=== PATIENT | male | born 1985 | race Caucasian/White ===

== ENCOUNTER 2018-01-16 09:15 | Emergency (ER) | payer SELFPAY ==
[~2018-01-16] VITALS: Ht 172.7 cm; Wt 70.4 kg
[2018-01-16 09:23] VITALS: BP 142/91; PULSE 67; RESP 18; TEMP 98.2; O2SAT 100
[2018-01-16 09:29] VITALS: BP 142/91; PULSE 76; RESP 18; TEMP 98.2; O2SAT 99
[2018-01-16] MEDS ORDERED: LEVE250 PO (09:34)
--- NOTE | 2018-01-16 09:37 | PD ---
HPI Chief Complaint: Psychiatric Symptoms Time Seen by Provider: 09:27 Travel History International Travel<30 days: No Contact w/Intl Traveler<30days: No Traveled to known affect area: No History of Present Illness HPI patient voiced that he did drugs in an attempt to kill himself through an overdose.... Patient states that he was using both cocaine and heroin when he developed this chest pain.. However he developed chest pain over his left chest , 45 minutes prior to arrival, described as a tightness...... patient denies any alleviating or aggravating factors. Patient denies any associated factors such as fever, headache, neck pain, back pain, flank pain, abdominal pain, nausea vomiting diarrhea cough runny nose or sore throat. Past medical history significant for seizures, ulcer, alcohol use, cocaine use, heroin use. Only surgeries for right hand surgery. And apparently the patient has multiple sclerosis according to him. [facility] Social History Tobacco Use: No Allergies-Medications (Allergen,Severity, Reaction): Coded Allergies: prochlorperazine (Verified Allergy, Severe, Anaphylaxis, 01/16/18) HIVES Reported Meds & Prescriptions Reported Meds & Active Scripts Active Reported Keppra (Levetiracetam) 250 Mg Tab 250 Mg PO BID Review of Systems General / Constitutional: No: Fever Eyes: No: Visual changes HENT: No: Headaches Cardiovascular: Positive: Chest Pain or Discomfort Respiratory: No: Shortness of Breath Gastrointestinal: No: Abdominal Pain Genitourinary: No: Dysuria Musculoskeletal: No: Pain Skin: No Rash Neurologic: No: Weakness Psychiatric: Positive: Suicidal Ideations Endocrine: No: Polydipsia Hematologic/Lymphatic: No: Easy Bruising Physical Exam Narrative GENERAL: SKIN: Warm and dry. HEAD: Atraumatic. Normocephalic. EYES: Pupils equal and round. No scleral icterus. No injection or drainage. ENT: No nasal bleeding or discharge. Mucous membranes pink and moist. NECK: Trachea midline. No JVD. CARDIOVASCULAR: Regular rate and rhythm. RESPIRATORY: No accessory muscle use. Clear to auscultation. Breath sounds equal bilaterally. GASTROINTESTINAL: Abdomen soft, non-tender, nondistended. MUSCULOSKELETAL: Extremities without clubbing, cyanosis, or edema. No obvious deformities. NEUROLOGICAL: Awake and alert. No obvious cranial nerve deficits. Motor grossly within normal limits. Five out of 5 muscle strength in the arms and legs. Normal speech. PSYCHIATRIC: Appropriate mood and affect; insight and judgment normal. Data Data Last Documented VS Vital Signs Date Time Temp Pulse Resp B/P (MAP) Pulse Ox O2 Delivery O2 Flow Rate FiO2 01/16/18 09:29 98.2 76 18 142/91 (108) 99 Room Air Orders Orders Complete Blood Count With Diff (01/16/18:27) Comprehensive Metabolic Panel (01/16/18:) Urinalysis - C+S If Indicated (01/16/18:) Electrocardiogram (01/16/18:) Ecg Monitoring (01/16/18:) Psych Screen (01/16/18:) Drug Screen, Random Urine (01/16/18:) Alcohol (Ethanol) (01/16/18:27) Salicylates (Aspirin) (01/16/18:) Tylenol (Acetaminophen) (01/16/18:) Labs Laboratory Tests Test 01/16/18 09:44 White Blood Count 6.7 TH/MM3 Red Blood Count 4.66 MIL/MM3 Hemoglobin 13.7 GM/DL Hematocrit 40.3 % Mean Corpuscular Volume 86.5 FL Mean Corpuscular Hemoglobin 29.3 PG Mean Corpuscular Hemoglobin Concent 33.9 % Red Cell Distribution Width 12.4 % Platelet Count 232 TH/MM3 Mean Platelet Volume 9.3 FL Neutrophils (%) (Auto) 53.1 % Lymphocytes (%) (Auto) 33.2 % Monocytes (%) (Auto) 11.6 % Eosinophils (%) (Auto) 1.8 % Basophils (%) (Auto) 0.3 % Neutrophils # (Auto) 3.6 TH/MM3 Lymphocytes # (Auto) 2.2 TH/MM3 Monocytes # (Auto) 0.8 TH/MM3 Eosinophils # (Auto) 0.1 TH/MM3 Basophils # (Auto) 0.0 TH/MM3 CBC Comment DIFF FINAL Differential Comment Blood Urea Nitrogen 15 MG/DL Creatinine 0.94 MG/DL Random Glucose 99 MG/DL Total Protein 7.2 GM/DL Albumin 3.9 GM/DL Calcium Level 9.0 MG/DL Alkaline Phosphatase 63 U/L Aspartate Amino Transf (AST/SGOT) 33 U/L Alanine Aminotransferase (ALT/SGPT) 31 U/L Total Bilirubin 1.1 MG/DL Sodium Level 141 MEQ/L Potassium Level 3.6 MEQ/L Chloride Level 104 MEQ/L Carbon Dioxide Level 30.0 MEQ/L Anion Gap 7 MEQ/L Estimat Glomerular Filtration Rate 92 ML/MIN Salicylates Level LESS THAN 1.7 MG/DL Acetaminophen Level LESS THAN 2.0 MCG/ML Ethyl Alcohol Level LESS THAN 3 MG/DL MDM Medical Decision Making Medical Screen Exam Complete: Yes Emergency Medical Condition: Yes Medical Record Reviewed: Yes Interpretation(s) EKG shows a normal sinus rhythm, 71 bpm, normal intervals, no STEMI pattern noted. Differential Diagnosis Cocaine chest pain versus NV versus pneumothorax versus pneumonia Narrative Course Patient self admitted to using cocaine and heroin, so although now tox screen is present, I do not believe it is necessary for screening purposes. CBC shows no leukocytosis, no anemia, normal platelet count and no left shift Tylenol salicylates and alcohol are not present Electrolytes are all within normal limits, normal kidney/liver functions. Due to the patient's making statements about suicide, the patient was Mcnulty acted here and will need to have psychiatric evaluation, presently the patient is medically cleared and ready for such evaluation. Diagnosis Primary Impression: Medical clearance for psychiatric admission Ricco Valerio MD Jan 16, 2018 09:37
[2018-01-16 09:56] LABS: AUTOMATED NEUTROPHIL # 3.6 TH/MM3 (1.8-7.7); BASOPHIL % 0.3 % (0.0-2.0); EOSINOPHIL # 0.1 TH/MM3 (0-0.4); EOSINOPHIL % 1.8 % (0.0-4.0); HEMATOCRIT 40.3 % (39.0-51.0); HEMOGLOBIN 13.7 GM/DL (13.0-17.0); LYMPH % 33.2 % (9.0-44.0); LYMPHOCYTE # 2.2 TH/MM3 (1.0-4.8); MEAN CELL VOLUME 86.5 FL (80.0-100.0); MEAN CORPUSCULAR HEMOGLOBIN 29.3 PG (27.0-34.0); MEAN CORPUSCULAR HGB CONC 33.9 % (32.0-36.0); MEAN PLATELET VOLUME 9.3 FL (7.0-11.0); MONO % 11.6 % (0.0-8.0); MONOCYTE # 0.8 TH/MM3 (0-0.9); NEUT % 53.1 % (16.0-70.0); PLATELET COUNT 232 TH/MM3 (150-450); RED BLOOD COUNT 4.66 MIL/MM3 (4.50-5.90); RED CELL DISTRIBUTION WIDTH 12.4 % (11.6-17.2); WHITE BLOOD COUNT 6.7 TH/MM3 (4.0-11.0)
[2018-01-16 10:36] LABS: ALBUMIN 3.9 GM/DL (3.4-5.0); AST (GOT) 33 U/L (15-37); BLOOD UREA NITROGEN 15 MG/DL (7-18); CHLORIDE 104 MEQ/L (98-107); CREATININE 0.94 MG/DL (0.60-1.30); GLOMERULAR FILTRATION RATE 92 ML/MIN (>89); GLUCOSE,RANDOM 99 MG/DL (74-106); SODIUM (NA) 141 MEQ/L (136-145)
[2018-01-16 10:41] LABS: ACETAMINOPHEN LESS THAN 2.0 MCG/ML (10.0-30.0); ALKALINE PHOSPHATASE 63 U/L (45-117); ALT (GPT) 31 U/L (12-78); TOTAL BILIRUBIN ADULT 1.1 MG/DL (0.2-1.0); TOTAL PROTEIN 7.2 GM/DL (6.4-8.2)
[2018-01-16 13:30] VITALS: BP 121/81; PULSE 71; RESP 18; O2SAT 99
[2018-01-16 14:13] LABS: AMORPHOUS SEDIMENT, URINE OCC; BILIRUBIN, URINE NEG (NEG); BLOOD, URINE NEG (NEG); GLUCOSE,URINE NEG (NEG); KETONE, URINE 40 mg/dL (NEG); MUCUS URINE FEW /lpf (OCC); NITRITE,URINE NEG (NEG); PH, URINE 6.5 (5.0-8.5); SQUAMOUS EPITHELIAL CELL URINE <1 /hpf (0-5); URINE COLOR YELLOW (YELLW/STRAW); URINE LEUKOCYTE ESTERASE NEG (NEG)
[2018-01-16 15:33] VITALS: BP 136/89; PULSE 80; RESP 18; O2SAT 99
[2018-01-16 19:45] VITALS: BP 135/65; PULSE 76; RESP 16; O2SAT 98
[2018-01-16 22:06] VITALS: BP 138/86; PULSE 76; RESP 18; TEMP 98.5; O2SAT 97
[2018-01-16] MEDS ORDERED: DULO20 PO (22:30)
[2018-01-17 02:14] VITALS: BP 127/60; PULSE 59; RESP 18; TEMP 98.1; O2SAT 98
[2018-01-17 06:34] VITALS: BP 123/73; PULSE 67; RESP 18; TEMP 98.4; O2SAT 99
--- NOTE | 2018-01-17 09:12 | EKG ---
Date Performed: 01/16/2018 Time Performed: 09:29:56 PTAGE: 32 years EKG: Sinus rhythm NORMAL ECG NO PREVIOUS TRACING DOCTOR: Joey Nam Interpretating Date/Time 01/17/2018 09:11:55
--- NOTE | 2018-01-17 11:32 | PD ---
History of Present Illness Chief Complaint: Adjustment disorder Time Seen by Provider: 11:00 Travel History International Travel<30 Days: No Contact w/Intl Traveler<30days: No Known affected area: No Legal Status Legal Status: Mcnulty Act Mcnulty Act Signed By: DR KU History of Present Illness: This is a 32-year-old, single, male who presented to the emergency department by [facility] for a self-reported attempt to overdose on cocaine and heroin. Patient is unknown to this facility. Reviewed electronic medical record, labs, discuss case with staff patient's toxicology is positive for cocaine and cannabinoids. Negative for opiates. Per staff, patient was on vacation in the [facility] area, visiting from [place]. While here he was arrested for domestic assault against his girlfriend/fiance. She reportedly took their car and return to [place] without him. Patient was evaluated in his room and J pod. He is awake, alert, and oriented 4. He was found sleeping but awoke easily to verbal stimuli. Patient's speech is clear, organized, and logical. There are no indications of internal stimulation and I can elicit no delusional material. Patient's mood is sad and his affect is sad. He reports being "really anxious and depressed". However there are no outward signs of anxiety and his vital signs have been within normal limits. He reports previous admissions to psychiatric facilities for depression and states the last one was in [place] approximately 5 years ago. He also reports having been admitted to detox in October and the and the [place] area. He admits that at this time he is homeless due to being abandoned by his fiance. He still maintains that he feels suicidal, denies feeling homicidal, denies visual or auditory hallucinations. PFSH Past Medical History Medical other: Yes (MULTIPLE SCLEROSIS ) Seizures: Yes Ulcer: Yes Tetanus Vaccination: < 5 Years Psychiatric History Psychiatric History Reports psychiatric inpatient admission in [place] approximately 5 years ago. Reports inpatient detox in [place] in October. Hx Psychiatric Treatment: REPORTS HISTORY OF DEPRESSION AND ADHD. LAST TOOK [facility] 1 YEAR AGO History of Inpatient Treatment: Yes Guns or firearms in home: No Social History Cocaine and cannabinoid use. Reports opiates however tox screen negative for them. Hx Alcohol Use: Yes Hx Tobacco Use: No Hx Substance Use: Yes (6 YR HISTORY OF OPIATE ABUSE, OCCASIOANL COCAINE) Substance Use Type: Heroin, Cocaine Hx of Substance Use Treatment: Yes Allergies-Medications (Allergen,Severity, Reaction): Coded Allergies: prochlorperazine (Verified Allergy, Severe, Anaphylaxis, 01/16/18) HIVES Reported Meds & Prescriptions Reported Meds & Active Scripts Active Reported Cymbalta DR (Duloxetine HCl) 20 Mg Capdr 20 Mg PO DAILY Keppra (Levetiracetam) 250 Mg Tab 250 Mg PO BID Mental Status Examination Appearance: Disheveled Consciousness: Alert Orientation: x4 Motor Activity: Other (Sitting on the bed) Language: Adequate Fund of Knowledge: Adequate Attention and Concentration: Adequate Memory: Unremarkable Mood: Appropriate Affect: Appropriate Thought Process & Associations: Intact Thought Content: Appropriate Hallucination Type: None Delusion Type: None Suicidal Ideation: Yes Suicidal Plan: No Suicidal Intention: No Homicidal Ideation: No Homicidal Plan: No Homicidal Intention: No Insight: Adequate Judgment: Adequate MDM Medical Decision Making Medical Record Reviewed: Yes Assessment/Plan This is a 32-year-old single, male who is brought in by [facility] for self- reported attempted overdose by cocaine and heroin. And patient was Mcnulty acted by Dr. Ku, emergency room physician, after making suicidal statements. Staff advises that patient was in the [facility] area on vacation with his girlfriend/fianc when he was arrested for domestic assault. Patient's fianc then took the car and returned home leaving the patient in the area. Upon evaluation he is alert and oriented 4. His speech is clear, logical, and organized. He reports feeling "really anxious and depressed". Requests "something for my anxiety". His vital signs have been within normal limits and patient was found resting quietly in his bed just prior to his evaluation. He admits to being homeless at this time and states that he has "stuck down here". At this point patient will remain on the SMA list. However, I will present him to the on-call psychiatrist for possible further evaluation to rule out malingering. Orders Orders Diet Regular Basic (01/16/18 Lunch) Hydroxyzine Pamoate (Vistaril) (01/16/18 15:30) Diet Regular Basic (01/17/18 Breakfast) Diet Regular Basic (01/17/18 Lunch) Results Vital Signs Date Time Temp Pulse Resp B/P (MAP) Pulse Ox O2 Delivery O2 Flow Rate FiO2 01/17/18 06:34 98.4 67 18 123/73 (90) 99 Room Air 01/17/18 02:14 98.1 59 18 127/60 (82) 98 Room Air 01/16/18 22:06 98.5 76 18 138/86 (103) 97 Room Air 01/16/18 19:45 76 16 135/65 (88) 98 Room Air 01/16/18 15:33 80 18 136/89 (105) 99 Room Air 01/16/18 13:30 71 18 121/81 (94) 99 Room Air Laboratory Tests Test 01/16/18 13:49 Urine Color YELLOW Urine Turbidity CLEAR Urine pH 6.5 Urine Specific [place] 1.020 Urine Protein NEG Urine Glucose (UA) NEG Urine Ketones 40 Urine Occult Blood NEG Urine Nitrite NEG Urine Bilirubin NEG Urine Urobilinogen 2.0 Urine Leukocyte Esterase NEG Urine RBC LESS THAN 1 Urine WBC 1 Urine Squamous Epithelial Cells <1 Urine Amorphous Sediment OCC Urine Mucus FEW Microscopic Urinalysis Comment CULT NOT INDICATED Urine Opiates Screen NEG Urine Barbiturates Screen NEG Urine Amphetamines Screen NEG Urine Benzodiazepines Screen NEG Urine Cocaine Screen POS Urine Cannabinoids Screen POS Diagnosis Primary Impression: Adjustment disorder Lashay Chong Jan 17, 2018 11:32
[2018-01-17] MEDS ORDERED: HYDR50TA94 PO (12:35)
[2018-01-17] MEDS ORDERED: hydrOXYzine HCL 50 MG TAB PO ONE (13:00)
[2018-01-17 13:32] VITALS: BP 147/87; PULSE 80; RESP 18; O2SAT 100
--- NOTE | 2018-01-17 18:06 | PD.PSY.CON ---
Provisional Diagnosis Admission Date [place] I. Unspecified depressive disorder, polysubstance use disorder History of Present Illness Service Psychiatry Consult Requested By ED Reason for Consult Pricila emmanuel Primary Care Physician No Primary Care Physician HPI Patient is a 32-year-old man, single, from [place], with a past psychiatric history of self-reported depressive disorder, polysubstance use disorder (alcohol, cocaine, heroine), with a past medical history of multiple sclerosis as per patient, who was brought under Mcnulty act after he had called 911 stating that he had attempted to overdose on cocaine and heroin. Documentation reviewed and case discussed with [facility] who noted: This is a 32-year-old, single, male who presented to the emergency department by [facility] for a self-reported attempt to overdose on cocaine and heroin. Patient is unknown to this facility. Reviewed electronic medical record, labs, discuss case with staff patient's toxicology is positive for cocaine and cannabinoids. Negative for opiates. Per staff, patient was on vacation in the [facility] area, visiting from [place]. While here he was arrested for domestic assault against his girlfriend/fiance. She reportedly took their car and return to [place] without him. Patient was evaluated in his room and J pod. He is awake, alert, and oriented 4. He was found sleeping but awoke easily to verbal stimuli. Patient's speech is clear, organized, and logical. There are no indications of internal stimulation and I can elicit no delusional material. Patient's mood is sad and his affect is sad. He reports being "really anxious and depressed". However there are no outward signs of anxiety and his vital signs have been within normal limits. He reports previous admissions to psychiatric facilities for depression and states the last one was in [place] approximately 5 years ago. He also reports having been admitted to detox in October and the and the [place] area. He admits that at this time he is homeless due to being abandoned by his fiance. He still maintains that he feels suicidal, denies feeling homicidal, denies visual or auditory hallucinations. Patient was found lying hospital bed and noted to be, cooperative interview with commercial underwriter. Patient states that he had a fight with his fiance who had left back to [place] and he was stranded here and [facility]. Patient reports feeling tired of living, "tired of all the drugs". Patient states that since his girlfriend had left him he had been on the streets since yesterday reported feeling depressed for the past month with having suicide ideations "where she left me". Patient continues to report feeling depressed along with continue suicide ideations at this time, we will reported decreased sleep, energy and concentration along with feeling helpless and hopeless. Patient states that his plan is to use "a bunch of drugs" an attempt to end his life. Patient denies any perceptual source of delusions. Patient reports having a past psychiatric history of depression in the past, with previous suicide attempts twice via overdose on drugs, with a past medical history significant for multiple sclerosis and seizure. Patient at this time continues to endorse feeling depressed along with suicide ideations which he will require inpatient stabilization along with addiction services for substance use issues. Past Family Social History Coded Allergies: prochlorperazine (Verified Allergy, Severe, Anaphylaxis, 01/16/18) HIVES Reported Medications Hydroxyzine HCl (Hydroxyzine HCl) 50 Mg Tab, 50 MG PO Q6HR Y for ANXIETY, TAB 0 Refills 01/17/[address] (Cymbalta DR) 20 Mg Capdr, 20 MG PO DAILY, #30 CAP 0 Refills 01/16/18 Levetiracetam (Keppra) 250 Mg Tab, 250 MG PO BID for Control Seizures, TAB 0 Refills 01/16/18 Physical Exam Vital Signs Vital Signs Date Time Temp Pulse Resp B/P (MAP) Pulse Ox O2 Delivery O2 Flow Rate FiO2 01/17/18 13:32 80 18 147/87 (107) 100 Room Air 01/17/18 06:34 98.4 Mental Status Examination Appearance: Disheveled Consciousness: Alert Orientation: x4 Motor Activity: Other (Sitting on the bed) Language: Adequate Fund of Knowledge: Adequate Attention and Concentration: Adequate Memory: Unremarkable Mood: Appropriate Affect: Appropriate Thought Process & Associations: Intact Thought Content: Appropriate Hallucination Type: None Delusion Type: None Suicidal Ideation: Yes Suicidal Plan: No Suicidal Intention: No Homicidal Ideation: No Homicidal Plan: No Homicidal Intention: No Insight: Adequate Judgment: Adequate Assessment & Plan Problem List: (1) Adjustment disorder ICD Codes: F43.20 - Adjustment disorder, unspecified Status: Acute (2) Polysubstance abuse ICD Codes: F19.10 - Other psychoactive substance abuse, uncomplicated Assessment & Plan Patient at this time continues to endorse feeling depressed along with suicide ideation in the context of continued polysubstance use. Patient at this time requires inpatient psychiatric stabilization as well as addiction/ rehabilitation services for his substance issues. Patient to be transferred to [facility] for further stabilization once bed is available. Josue Martínez MD Jan 17, 2018 18:06
[2018-01-17 18:46] VITALS: BP 135/80; PULSE 88; RESP 18; O2SAT 98
[2018-01-18 02:48] VITALS: RESP 17
[2018-01-18 09:15] VITALS: BP 135/93; PULSE 86; RESP 16; TEMP 98.2; O2SAT 99
--- NOTE | 2018-01-18 09:47 | PD ---
Physical Exam Date Seen by Provider: Jan 18, 2018 Time Seen by Provider: 09:45 Narrative 32-year-old male previously Mcnulty acted, and medically clear for psychiatric evaluation, has been seen by psychiatric services and felt to be psychiatrically stable but felt to need further assistance to [facility]. Patient will be transferred directly to [facility] for further treatment. Patient remains medically stable for transfer. Data Data Last Documented VS Vital Signs Date Time Temp Pulse Resp B/P (MAP) Pulse Ox O2 Delivery O2 Flow Rate FiO2 01/18/18 09:15 98.2 86 16 135/93 (107) 99 Room Air Orders Orders Complete Blood Count With Diff (01/16/18 09:27) Comprehensive Metabolic Panel (01/16/18 09:27) Urinalysis - C+S If Indicated (01/16/18 09:27) Electrocardiogram (01/16/18 09:27) Ecg Monitoring (01/16/18 09:27) Psych Screen (01/16/18 09:27) Drug Screen, Random Urine (01/16/18 09:27) Alcohol (Ethanol) (01/16/18 09:27) Salicylates (Aspirin) (01/16/18 09:27) Tylenol (Acetaminophen) (01/16/18 09:27) Diet Regular Basic (01/16/18 Lunch) Hydroxyzine Pamoate (Vistaril) (01/16/18 15:30) Diet Regular Basic (01/17/18 Breakfast) Diet Regular Basic (01/17/18 Lunch) Hydroxyzine Hcl (Atarax) (01/17/18 13:00) Diet Regular Basic (01/17/18 Dinner) Diet Regular Basic (01/18/18 Breakfast) Labs Laboratory Tests Test 01/16/18 09:44 01/16/18 13:49 White Blood Count 6.7 TH/MM3 Red Blood Count 4.66 MIL/MM3 Hemoglobin 13.7 GM/DL Hematocrit 40.3 % Mean Corpuscular Volume 86.5 FL Mean Corpuscular Hemoglobin 29.3 PG Mean Corpuscular Hemoglobin Concent 33.9 % Red Cell Distribution Width 12.4 % Platelet Count 232 TH/MM3 Mean Platelet Volume 9.3 FL Neutrophils (%) (Auto) 53.1 % Lymphocytes (%) (Auto) 33.2 % Monocytes (%) (Auto) 11.6 % Eosinophils (%) (Auto) 1.8 % Basophils (%) (Auto) 0.3 % Neutrophils # (Auto) 3.6 TH/MM3 Lymphocytes # (Auto) 2.2 TH/MM3 Monocytes # (Auto) 0.8 TH/MM3 Eosinophils # (Auto) 0.1 TH/MM3 Basophils # (Auto) 0.0 TH/MM3 CBC Comment DIFF FINAL Differential Comment Blood Urea Nitrogen 15 MG/DL Creatinine 0.94 MG/DL Random Glucose 99 MG/DL Total Protein 7.2 GM/DL Albumin 3.9 GM/DL Calcium Level 9.0 MG/DL Alkaline Phosphatase 63 U/L Aspartate Amino Transf (AST/SGOT) 33 U/L Alanine Aminotransferase (ALT/SGPT) 31 U/L Total Bilirubin 1.1 MG/DL Sodium Level 141 MEQ/L Potassium Level 3.6 MEQ/L Chloride Level 104 MEQ/L Carbon Dioxide Level 30.0 MEQ/L Anion Gap 7 MEQ/L Estimat Glomerular Filtration Rate 92 ML/MIN Salicylates Level LESS THAN 1.7 MG/DL Acetaminophen Level LESS THAN 2.0 MCG/ML Ethyl Alcohol Level LESS THAN 3 MG/DL Urine Color YELLOW Urine Turbidity CLEAR Urine pH 6.5 Urine Specific [place] 1.020 Urine Protein NEG mg/dL Urine Glucose (UA) NEG mg/dL Urine Ketones 40 mg/dL Urine Occult Blood NEG Urine Nitrite NEG Urine Bilirubin NEG Urine Urobilinogen 2.0 MG/DL Urine Leukocyte Esterase NEG Urine RBC LESS THAN 1 /hpf Urine WBC 1 /hpf Urine Squamous Epithelial Cells <1 /hpf Urine Amorphous Sediment OCC Urine Mucus FEW /lpf Microscopic Urinalysis Comment CULT NOT INDICATED Urine Opiates Screen NEG Urine Barbiturates Screen NEG Urine Amphetamines Screen NEG Urine Benzodiazepines Screen NEG Urine Cocaine Screen POS Urine Cannabinoids Screen POS [facility] Medical Record Reviewed: Yes Supervised Visit with NATALIYA: Yes Narrative Course 32-year-old male previously Mcnulty acted, and medically clear for psychiatric evaluation, has been seen by psychiatric services and felt to be psychiatrically stable but felt to need further assistance to [facility]. Patient will be transferred directly to [facility] for further treatment. Patient remains medically stable for transfer. Diagnosis Primary Impression: Adjustment disorder Patient Instructions: General Instructions Disposition: 70 TRANSFER TO OTHER FACILITY Condition: Stable Milton Fritz Jan 18, 2018 09:47
== END 2018-01-18 10:14 | disposition short-term general hospital (02) ==
LOC: NEPC 09:15 → NEPJ 01-18 10:14
DX: F43.20 Adjustment disorder, unspecified (principal); F14.10 Cocaine abuse, uncomplicated; F12.10 Cannabis abuse, uncomplicated; F41.9 Anxiety disorder, unspecified; G35 Multiple sclerosis; R56.9 Unspecified convulsions; Z59.0 Homelessness; Z79.899 Other long term (current) drug therapy; Z88.8 Allergy status to other drugs, medicaments and biological substances
CPT/HCPCS: 80053; 80307; 81001; 85025; 93005; 99285